=== PATIENT | female | born 2000 | race Caucasian/White ===

== ENCOUNTER 2022-07-30 08:45 | Outpatient (CLI) | payer OTHER ==
[~2022-07-30] VITALS: Ht 167.6 cm; Wt 88.7 kg
[~2022-07-30 08:45] MED LIST: DESMOPRESSIN ACETATE IV ONE; NS IV ONE
[2022-07-30 09:15] VITALS: BP 130/75
[2022-07-30 10:40] VITALS: BP 131/71
== END 2022-07-30 10:50 | disposition home or self-care (01) ==
LOC: M INFU 08:45
PROVIDERS: ATTEND Physician Assistant Medical
DX: D68.00 Von Willebrand disease, unspecified (principal)
CPT/HCPCS: 96365; J2597